=== PATIENT | male | born 1970 | race Caucasian/White ===

== ENCOUNTER 2017-04-21 00:29 | Emergency (ER) | payer SELFPAY ==
[2017-04-21 00:34] VITALS: PULSE 78; RESP 16; TEMP 98.2; O2SAT 96
--- NOTE | 2017-04-21 02:59 | EDPHY ---
H & P Stated Complaint: 4FT FALL OFF A BRIDGE ONTO ROCKS, L 5TH TOE PAIN, LAC TO R FOOT Time Seen by Provider: 04/21/17 01:29 HPI/ROS: HPI The patient presents with a fall about 4 feet from a bridge onto rocks on a [place] bed. He injured his left pinky toe and has sustained a laceration. He has been able to walk. He has pain at the base of his pinky toe which is achy in nature, constant, moderate in severity. He does not have any numbness or tingling. He says his pinky toe feels loose like it may have been dislocated. REVIEW OF SYSTEMS Constitutional: No fever, no chills. Eyes: No discharge. ENT: No sore throat. Cardiovascular: No chest pain, no palpitations. Respiratory: No cough, no shortness of breath. Gastrointestinal: No abdominal pain, no vomiting. Genitourinary: No hematuria. Musculoskeletal: No back pain. Skin: No rashes. Neurological: No headache. PMHx: Healthy Soc Hx: Current smoker PHYSICAL General Appearance: Alert, no distress Eyes: Pupils equal and round no pallor or injection ENT, Mouth: Mucous membranes moist Respiratory: There are no retractions, lungs are clear to auscultation Cardiovascular: Regular rate and rhythm Gastrointestinal: Abdomen is soft and non-tender, no masses, bowel sounds normal Neurological: A&O, moves all extremities Skin: Warm and dry, no rashes Musculoskeletal: Neck is supple non tender Extremities: Left 5th toe with 2 cm laceration on the plantar surface at the metatarsal joint, though is diffusely tender to palpation, sensation is intact, brisk cap refill Psychiatric: Patient is oriented X 3, there is no agitation Source: Patient Exam Limitations: No limitations - Personal History Current Tetanus Diphtheria and Acellular Pertussis (TDAP): Yes Tetanus Vaccine Date: 2008 - Medical/Surgical History Other PMH: DENIES - Social History Smoking Status: Current every day smoker Constitutional: Initial Vital Signs Temperature (C) 36.8 C 04/21/17 00:32 Heart Rate 78 04/21/17 00:32 Respiratory Rate 16 04/21/17 00:32 Blood Pressure 127/92 H 04/21/17 00:32 O2 Sat (%) 96 04/21/17 00:32 O2 Delivery Mode Room Air Allergies/Adverse Reactions: morphine [Morphine] Allergy (Severe, Verified 03/04/10 08:08) Anaphylaxis Penicillins Allergy (Severe, Verified 03/04/10 08:08) Anaphylaxis OPIATES Allergy (Uncoded 04/21/17 00:35) Home Medications: Medication Instructions Recorded No Medications [NO HOME 1 ea [facility] [place] 01/30/12 MEDICATIONS] Cephalexin [Keflex (*)] 500 mg PO Q6H #28 cap 04/21/17 Medical Decision Making - Diagnostics Imaging Results: Foot left x-ray demonstrates dislocation of the left 5th PIP joint with underlying fracture, interpreted by me, radiology interpretation is pending. Procedures: LACERATION REPAIR Procedure: Laceration repair. Verbal consent was obtained from the patient. The linear 2 cm laceration on the plantar surface of the 5th left toe was anesthetized using lidocaine. The wound was scrubbed, draped and explored to its base with a gloved finger. There were no deep structures involved. No tendon injury was identified. The wound required extensive debridement . The wound was repaired with 4 0 nylon sutures. The wound repair was simple. The procedure was performed by myself. Differential Diagnosis: This is a healthy 46-year-old male who had a fall from 4 feet into the [place] and landed on rocks. He was not wearing shoes and has sustained an injury to his left 5th digit. He has an obvious laceration. X-ray was obtained which did show dislocation of the PIP joint. However on exam, this appears to have reduced on its own. He also has signs of fracture of this joint. In the emergency room, the patient was given a digital block, his laceration was irrigated with copious normal saline. Sutures were performed by me. He did not have any instability of the PIP joint. He was placed in a cast shoe. I will refer him to Podiatry. He will be given a course of antibiotics given the nature of his wound. Departure - Departure Disposition: Home, Routine, Self-Care Clinical Impression: Toe laceration, Dislocation of toe of left foot Condition: Good Instructions: Care For Your Stitches (ED), Laceration (ED) Additional Instructions: Please wear the cast shoe for the next 1 week to help with pain. You should follow up with the automobile body repairer. Please take the antibiotic as prescribed. You should return if there is any more redness, swelling, pain. Referrals: Luciana Almanzar DPM [Doctor of Podiatric Medicine] - As per Instructions Prescriptions: Cephalexin [Keflex (*)] 500 mg PO Q6H #28 cap
[2017-04-21 03:29] VITALS: BP 124/83
== END 2017-04-21 03:28 | disposition home or self-care (01) ==
PROC: 0HQNXZZ Repair Left Foot Skin, External Approach (ICD-10-PCS; principal; 2017-04-21)
DX: S93.115A Dislocation of interphalangeal joint of left lesser toe(s), initial encounter (principal); S91.115A Laceration without foreign body of left lesser toe(s) without damage to nail, initial encounter; F17.200 Nicotine dependence, unspecified, uncomplicated; W17.89XA Other fall from one level to another, initial encounter